=== PATIENT | male | born 1985 | race Caucasian/White ===

== ENCOUNTER 2019-04-25 11:26 | Emergency (ER) | payer SELFPAY ==
[2019-04-25] MEDS ORDERED: CIPROFLOXACIN HCL/DEXAMETH OTIC DROP 7.5 ML AD ONE (14:13)
[2019-04-25] MEDS ORDERED: DEXAMETHASONE 4 MG TABLET PO ONE (14:16)
--- NOTE | 2019-04-25 14:19 | ER Document Report ---
HPI - HPI Time Seen by Provider: 04/25/19 12:40 Pain Level: 2 Notes: Patient presents to the emergency department chief complaint of right ear pain and throat pain. Patient reports pain has been going on for several days. He states he has been drainable peroxide in his ear to help with the pain. He denies any fevers, nausea, vomiting or diarrhea. - CONSTITUTIONAL Constitutional: DENIES: Fever, Chills - EENT EENT: REPORTS: Sore Throat, Ear Pain Past Medical History - General Information source: Patient - Social History Smoking Status: Never Smoker Frequency of alcohol use: None Drug Abuse: None Family History: Reviewed & Not Pertinent Patient has suicidal ideation: No Patient has homicidal ideation: No - Medical History Medical History: Negative Renal/ Medical History: Denies: Hx Peritoneal Dialysis Surgical Hx: Negative - Immunizations Immunizations up to date: Yes Vertical Provider Document - CONSTITUTIONAL Notes: PHYSICAL EXAMINATION: GENERAL: Well-appearing, well-nourished and in no acute distress. HEAD: Atraumatic, normocephalic. EYES: Pupils equal round extraocular movements intact, conjunctiva are normal. ENT: Nares patent, throat mildly erythematous, mild tonsillar swelling with exudates specifically to the right side, no evidence of peritonsillar abscess, uvula is midline. Left TM and ear canal appear normal. Right TM appears normal, right ear canal macerated and erythematous. NECK: Normal range of motion LUNGS: No respiratory distress Musculoskeletal: Normal range of motion NEUROLOGICAL: Normal speech, normal gait. PSYCH: Normal mood, normal affect. SKIN: Warm, Dry, normal turgor, no rashes or lesions noted. - INFECTION CONTROL TRAVEL OUTSIDE OF THE [place] IN LAST 30 DAYS: No Course - Re-evaluation Re-evalutation: Rapid strep is negative. Exam is consistent with otitis externa. Will start patient on Ciprodex drops. Throat culture pending. - Vital Signs Vital signs: Temp Pulse Resp BP Pulse Ox 98.5 F 95 16 121/84 98 04/25/19 11:52 04/25/19 11:52 04/25/19 11:52 04/25/19 11:52 04/25/19 11:52 Discharge - Discharge Clinical Impression: Sore throat Otitis externa Qualifiers: Otitis externa type: unspecified type Chronicity: unspecified Laterality: unspecified laterality Qualified Code(s): H60.90 - Unspecified otitis externa, unspecified ear Condition: Stable Disposition: HOME, SELF-CARE Additional Instructions: Otitis Externa You have otitis externa -- an infection of the outer ear canal. This can be very painful. It's sometimes called "swimmer's ear," because it often occurs after prolonged water exposure. Many things, such as earwax and dirt in the ear, can contribute to it. The usual treatment is antibiotic/antiinflammatory ear drops. Occasionally, a wick will be placed in the ear to draw in the medicine. If the infection is severe, an oral antibiotic may be prescribed. Pain medication is often needed. Avoid getting water in the ear. Outer ear infections often take longer to heal than you might expect. Some tenderness and ache in the ear may persist for about two weeks. See your physician if you fail to improve as expected. Call the doctor at once if you develop fever, increasing swelling (particularly if it makes your ear "poke out"), severe headache, stiff neck, or decreased hearing. SORE THROAT: Sore throats may be caused by viruses, bacteria, or fungi. Most are due to a virus, and must get better on their own. Bacterial sore throats, particularly those due to "strep," need treatment with antibiotics. If an antibiotic is prescribed, be sure to take the medication for a full 10 days. Failure to take the antibiotic can result in complications such as rheumatic fever. Sometimes, an injection of antibiotics is given instead of pills or liquid. This single "shot" is equal in effectiveness to the oral medication. To relieve symptoms, take acetaminophen for pain. Sip clear liquids frequently, or eat popsicles or ice chips. Anesthetic sprays or lozenges may help. Make sure the air in the room is not too dry. Avoid using decongestants or antihistamines. Call the doctor if there is no improvement in two days, or if you have difficulty breathing, increasing throat pain, high fever, rash, or frequent vomiting. STEROID MEDICATION: You have been given a medicine of the cortisone/steroid class. This medication is used to control inflammation or allergy. It is usually only given for a short period of time, until the acute process subsides. There are usually no side effects from short-term use of cortisone-like medications. Some persons feel an increased sense of well-being and are not sleepy at bedtime. Long-term use of cortisone medications is best avoided, unless required for a severe condition. If your condition does not remit, or relapses after the course of corticosteroid medication, you should consult your physician. FOLLOW-UP CARE: If you have been referred to a physician for follow-up care, call the physicians office for an appointment as you were instructed or within the next two days. If you experience worsening or a significant change in your symptoms, notify the physician immediately or return to the Emergency Department at any time for re-evaluation. The rapid strep test done today was negative. A throat culture is pending. Someone will call you if this is abnormal. Use the Ciprodex eardrops to the affected ear, apply 4 drops in the affected ear twice daily for 7 days. Forms: Return to Work
[2019-04-25 14:22] VITALS: BP 122/84
== END 2019-04-25 14:27 | disposition home or self-care (01) ==
LOC: ER 11:26
DX: H60.90 Unspecified otitis externa, unspecified ear (principal); J02.9 Acute pharyngitis, unspecified; H92.01 Otalgia, right ear
CPT/HCPCS: 87070; 87880; J3490; 99283